=== PATIENT | female | born 1980 | race Hispanic/Latino ===

== ENCOUNTER 2017-11-11 16:30 | Inpatient (IN) | payer BC, MEDICAID ==
[~2017-11-11] VITALS: Ht 165.1 cm; Wt 90.3 kg
[2017-11-11] MEDS: LACTATED RINGERS 1000ML 1,000 ML IV SCH ×2 (17:15→23:27)
[2017-11-11] MEDS ORDERED: CALDOLOR 800MG+NS 250ML 250 ML IV PRN (17:15)
[2017-11-11] MEDS ORDERED: CEFAZOLIN SODIUM 1 GM VIAL IVP PRN (17:15)
[2017-11-11 17:51] LABS: HEMATOCRIT 33.9 % (36-48); MEAN CORPUSCULAR HEMOGLOBIN 29.3 pg (27.0-33.0); MEAN CORPUSCULAR HGB CONC 33.8 g/dL (32.0-36.0); MEAN CORPUSCULAR VOLUME 86.8 fL (79-99); PLATELET COUNT (AUTO) 235 K/uL (130-400); RED BLOOD CELL COUNT(AUTO) 3.91 MIL/uL (4.00-5.50); RED CELL DISTRIBUTION WIDTH 17.2 % (11.0-15.5); WHITE BLOOD COUNT (AUTO) 9.1 K/uL (4.8-10.8)
[2017-11-11 17:51] LABS: APPEARANCE,URINE Clear (CLEAR); BILIRUBIN,URINE Negative (NEGATIVE); COLOR,URINE Yellow (YELLOW); GLUCOSE, URINE (UA) Negative (NEGATIVE); KETONES,URINE Negative (NEGATIVE); LEUKOCYTE ESTERASE ,URINE Moderate (NEGATIVE); NITRATE,URINE Negative (NEGATIVE); OCCULT BLOOD,URINE Negative (NEGATIVE); PH,URINE 6.5 (5.0-8.0); PROTEIN,URINE Negative (NEGATIVE); UROBILINOGEN,URINE 0.2 mg/dL (0.2-1.0)
[2017-11-11 18:01] LABS: INR 0.88 (0.85-1.15); PARTIAL THROMBOPLASTIN TIME 23.5 SEC (26.3-35.5); PROTHROMBIN TIME 9.3 SEC (9.6-11.6)
[2017-11-11 18:02] LABS: CREATININE 0.7 mg/dL (0.5-1.5); POTASSIUM 4.2 mmol/L (3.5-5.1)
[2017-11-11 18:06] LABS: ALBUMIN 2.3 g/dL (3.5-5.0); BILIRUBIN,TOTAL 0.1 mg/dL (0.2-1.0); TOTAL PROTEIN, SERUM 6.9 g/dL (6.0-8.3); URIC ACID 4.1 mg/dL (2.6-7.2)
[2017-11-11 18:46] LABS: RBC,URINE 0-1 /HPF (0-1)
[2017-11-11 18:47] LABS: BACTERIA,URINE Rare /HPF (None Seen); SQUAMOUS EPITHELIAL CELL,UR Rare /LPF (0-2)
[2017-11-11] MEDS ORDERED: LABETALOL HCL 100 MG TABLET PO STA (21:23)
[2017-11-11] MEDS ORDERED: LABE100T PO (21:26)
[2017-11-11] MEDS ORDERED: PREN1TAB89 PO (21:37)
[2017-11-11 21:39] VITALS: BP 127/89
[2017-11-12] MEDS ORDERED: LACTATED RINGERS 1000ML 1,000 ML IV ONE ×2 (05:59→15:20)
[2017-11-12] MEDS ORDERED: OXYTOCIN 10 USP UNITS/ML ONE ×2 (07:29→15:20)
[2017-11-12 10:29] LABS: RAPID PLASMA REAGIN NONREACTIVE (NONREACTIVE)
[2017-11-12] MEDS ORDERED: CEFAZOLIN SODIUM 1 GM VIAL IVP ONE (13:35)
[2017-11-12] MEDS ORDERED: MIDAZOLAM HCL 1 MG/ML 2ML VIAL ONE (13:49)
[2017-11-12] MEDS ORDERED: OXYTOCIN-LR 20 UNITS/1000 ML 1,000 ML IV PRN (14:20)
[2017-11-12] MEDS ORDERED: ACETAMINOPHEN-CODEINE 300/30MG TAB PO PRN (14:30)
[2017-11-12] MEDS ORDERED: DEXTROSE 5 %-0.45 % NACL 1,000 ML IV PRN (14:30)
[2017-11-12 15:04] LABS: HEMATOCRIT 27.2 % (36-48)
[2017-11-12] MEDS ORDERED: MORPHINE SULFATE 4 MG/1ML SYG ONE (16:57)
[2017-11-12 17:10] VITALS: BP 140/88
[2017-11-12 19:23] VITALS: BP 142/81
[2017-11-12] MEDS ORDERED: ONDANSETRON HCL 4 MG/2 ML VIAL IVP PRN ×2 (19:45)
[2017-11-12] MEDS ORDERED: MORPHINE SULFATE 2 MG/ML 1ML SYG IVP PRN (19:45)
[2017-11-12] MEDS ORDERED: EPHEDRINE SULFATE 50 MG/ML AMPULE IVP PRN (19:45)
[2017-11-12] MEDS ORDERED: NALOXONE HCL 0.4 MG/1 ML ML IVP PRN (19:45)
[2017-11-12] MEDS ORDERED: HYDROCODONE/ACETAMINOPHEN 5/325 MG TAB PO PRN (19:45)
[2017-11-12] MEDS ORDERED: ONDANSETRON HCL 4 MG/2 ML 8 MG in SODIUM CHLORIDE 0.9% 50 ML IVP NR (19:45)
[2017-11-12] MEDS ORDERED: DiphenhydrAMINE HCL 50 MG/ML VIAL IVP PRN (19:45)
[2017-11-12] MEDS ORDERED: METOCLOPRAMIDE 10 MG/2 ML VIAL IVP PRN (19:45)
[2017-11-12] MEDS ORDERED: PROMETHAZINE HCL 25 MG/ML 1ML AMPULE IM PRN (19:45)
[2017-11-12] MEDS: HYDROCODONE/ACETAMINOPHEN 5/325 MG TAB PO PRN (20:30)
[2017-11-12] MEDS ORDERED: CEFAZOLIN 2GM / 50 ML 50 ML IV SCH (21:30)
[2017-11-12] MEDS: CEFAZOLIN SODIUM 1 GM VIAL IVP SCH (22:20)
[2017-11-12] MEDS: CALDOLOR 800MG+NS 250ML 250 ML IV SCH (22:37)
[2017-11-12 23:21] VITALS: BP 142/75
[2017-11-13 03:10] VITALS: BP 135/71
[2017-11-13] MEDS: HYDROCODONE/ACETAMINOPHEN 5/325 MG TAB PO PRN (04:48)
[2017-11-13] MEDS: CEFAZOLIN SODIUM 1 GM VIAL IVP SCH (05:30)
[2017-11-13] MEDS: CALDOLOR 800MG+NS 250ML 250 ML IV SCH (05:41)
[2017-11-13 07:19] VITALS: BP 121/68
[2017-11-13 08:53] LABS: HEMATOCRIT 28.1 % (36-48); MEAN CORPUSCULAR HEMOGLOBIN 29.3 pg (27.0-33.0); MEAN CORPUSCULAR HGB CONC 33.4 g/dL (32.0-36.0); MEAN CORPUSCULAR VOLUME 87.9 fL (79-99); PLATELET COUNT (AUTO) 163 K/uL (130-400); RED BLOOD CELL COUNT(AUTO) 3.19 MIL/uL (4.00-5.50); RED CELL DISTRIBUTION WIDTH 17.6 % (11.0-15.5)
[2017-11-13 11:31] VITALS: BP 139/86
[2017-11-13 12:11] LABS: HEPATITIS Bs ANTIGEN SCREEN P Negative (Negative)
[2017-11-13] MEDS: IBUPROFEN 800 MG TAB PO SCH ×2 (14:05→21:53)
[2017-11-13 15:38] VITALS: BP 128/79
[2017-11-13 19:25] VITALS: BP 131/87
[2017-11-13] MEDS ORDERED: TRAMADOL /APAP 37.5MG/325MG TAB PO PRN (20:00)
[2017-11-13] MEDS ORDERED: BISACODYL 10 MG SUPP.RECT RC PRN (20:00)
[2017-11-13 23:39] VITALS: BP 140/80
[2017-11-14 03:34] VITALS: BP 126/63
[2017-11-14] MEDS: IBUPROFEN 800 MG TAB PO SCH ×2 (06:27→14:00)
[2017-11-14 08:04] VITALS: BP 129/76
[2017-11-14 11:20] VITALS: BP 185/103
[2017-11-14 11:24] VITALS: BP 152/90
[2017-11-14 11:27] VITALS: BP 146/81
[2017-11-14] MEDS ORDERED: DIPH,PERTUSS(ACELL),TET VAC/PF 0.5 ML VIAL IM ONE (13:15)
[2017-11-14] MEDS ORDERED: MO8B PO (13:42)
[2017-11-14] MEDS ORDERED: DOCU240C25 PO (13:42)
[2017-11-14] MEDS ORDERED: ACET1TAB12 PO (13:43)
== END 2017-11-14 14:45 | disposition home or self-care (01) | DRG 765 ==
LOC: LDH 16:30 → EDSTATUS 11-12 12:00 → WSH 11-12 17:10
PROC: 10D00Z1 Extraction of Products of Conception, Low, Open Approach (ICD-10-PCS; 2017-11-12)
PROC: 3E0234Z Introduction of Serum, Toxoid and Vaccine into Muscle, Percutaneous Approach (ICD-10-PCS; 2017-11-12)
PROC: 0UB70ZZ Excision of Bilateral Fallopian Tubes, Open Approach (ICD-10-PCS; principal; 2017-11-12 12:00)
DX: O34.211 Maternal care for low transverse scar from previous cesarean delivery (principal); O99.42 Diseases of the circulatory system complicating childbirth; I48.91 Unspecified atrial fibrillation; O16.3 Unspecified maternal hypertension, third trimester; O41.03X0 Oligohydramnios, third trimester, not applicable or unspecified; Z37.0 Single live birth; O36.8130 Decreased fetal movements, third trimester, not applicable or unspecified; Z3A.37 37 weeks gestation of pregnancy; O34.13 Maternal care for benign tumor of corpus uteri, third trimester; Z30.2 Encounter for sterilization; D25.9 Leiomyoma of uterus, unspecified; O99.62 Diseases of the digestive system complicating childbirth; K42.9 Umbilical hernia without obstruction or gangrene; Z23 Encounter for immunization; O99.824 Streptococcus B carrier state complicating childbirth; O99.344 Other mental disorders complicating childbirth; F41.9 Anxiety disorder, unspecified
CPT/HCPCS: 36415; 59510; 80053; 81001; 84550; 85027; 85384; 85610; 85730; 86592; 86701; 86850; 86900; 86901; 87340; 87390; 88302; 90715; A4218; A4344; A4606; J0690; J1741; J2250; J2270; J2590; J7120

== ENCOUNTER 2018-03-19 14:36 | Emergency (ER) | payer BC, MEDICAID, OTHER ==
[~2018-03-19 14:36] MED LIST: ACET1TAB12 PO; DOCU240C25 PO; MO8B PO; PREN1TAB89 PO
[2018-03-19 15:34] LABS: APPEARANCE,URINE Clear (CLEAR); BILIRUBIN,URINE Negative (NEGATIVE); COLOR,URINE Yellow (YELLOW); GLUCOSE, URINE (UA) Negative (NEGATIVE); KETONES,URINE Negative (NEGATIVE); LEUKOCYTE ESTERASE ,URINE Small (NEGATIVE); NITRATE,URINE Negative (NEGATIVE); OCCULT BLOOD,URINE Negative (NEGATIVE); PROTEIN,URINE Negative (NEGATIVE); UROBILINOGEN,URINE 0.2 mg/dL (0.2-1.0)
[2018-03-19 15:45] LABS: BACTERIA,URINE Few /HPF (None Seen); RBC,URINE None Seen /HPF (0-1)
[2018-03-19 15:46] LABS: MUCUS,URINE Few LPF (None Seen)
[2018-03-19] MEDS ORDERED: KETOROLAC TROMETHAMINE 60 MG/2 ML VIAL ONE (16:04)
[2018-03-19] MEDS ORDERED: CEFTRIAXONE SODIUM 1 GM ONE (16:04)
[2018-03-19] MEDS ORDERED: LIDOCAINE HCL-MPF 1% 2ML VIAL ONE (16:07)
== END 2018-03-19 16:47 | disposition home or self-care (01) ==
LOC: EDH 14:36
DX: N39.0 Urinary tract infection, site not specified (principal); Z87.891 Personal history of nicotine dependence
CPT/HCPCS: 81001; 81025; 96372 ×2; 99284; J0696; J1885; J3490

== ENCOUNTER → 2019-08-30 | Outpatient (CLI) | payer OTHER ==
[~2019-08-30] MED LIST changes: +IBUP-1493 PO; -MO8B PO
== END | disposition home or self-care (01) ==
LOC: RAH 14:06
PROVIDERS: ATTEND Family Medicine
DX: Z13.6 Encounter for screening for cardiovascular disorders (principal)
CPT/HCPCS: 75571

== ENCOUNTER 2024-05-13 15:00 | Emergency (ER) | payer BC ==
[~2024-05-13] VITALS: Ht 165.1 cm; Wt 88.0 kg
[~2024-05-13 15:00] MED LIST changes: +CYCL5TAB PO; +IBUP-2070 PO
[2024-05-13 15:46] LABS: APPEARANCE,URINE CLOUDY (CLEAR); BILIRUBIN,URINE NEGATIVE (NEGATIVE); COLOR,URINE YELLOW (YELLOW); GLUCOSE, URINE (UA) NEGATIVE (NEGATIVE); KETONES,URINE NEGATIVE (NEGATIVE); LEUKOCYTE ESTERASE ,URINE NEGATIVE Leu/uL (NEGATIVE); NITRATE,URINE NEGATIVE (NEGATIVE); OCCULT BLOOD,URINE NEGATIVE (NEGATIVE); PH,URINE 5.5 (5.0-8.0); PROTEIN,URINE 20 mg/dL (NEGATIVE); UROBILINOGEN,URINE 0.2 mg/dL (0.2-1.0)
[2024-05-13 15:49] LABS: ADD UA MICROSCOPIC NO
[2024-05-13 15:55] LABS: BACTERIA,URINE RARE /HPF (None Seen); MUCUS,URINE FEW LPF (None Seen); SQUAMOUS EPITHELIAL CELL,UR MOD /HPF (0-2); URIC ACID CRYSTALS,URINE RARE /LPF (None Seen)
[2024-05-13] MEDS: ORPHENADRINE 60MG/2ML IM ONE (16:09)
[2024-05-13] MEDS: KETOROLAC 15MG/ML VIAL (15MG/ML) IM ONE (16:10)
[2024-05-13] MEDS: TRIAMCINOLONE ACETONIDE 40 MG/ML 1ML VIAL SQ ONE (16:11)
[2024-05-13] MEDS ORDERED: METH100054 PO (17:05)
[2024-05-13 17:06] VITALS: BP 156/88; PULSE 72; RESP 18; O2SAT 100
== END 2024-05-13 17:12 | disposition home or self-care (01) ==
LOC: EDH 15:00
DX: M54.41 Lumbago with sciatica, right side (principal); F41.9 Anxiety disorder, unspecified; I10 Essential (primary) hypertension; Z98.890 Other specified postprocedural states; Z79.899 Other long term (current) drug therapy
CPT/HCPCS: 99284; 87086; 81003; 96372 ×3; J3301; J1885; J2360